=== PATIENT | female | born 1960 | race Caucasian/White ===

== ENCOUNTER → 2021-04-12 14:23 | Outpatient (BNVA) | payer MEDICARE, MEDICAID, SELFPAY | PROVIDERS: Family Provider Nurse Practitioner Family; PCP Nurse Practitioner Family; Referring Provider Nurse Practitioner Family; Visit Provider Nurse Practitioner | DX: G62.9 Polyneuropathy, unspecified (principal); I69.354 Hemiplegia and hemiparesis following cerebral infarction affecting left non-dominant side; Z87.891 Personal history of nicotine dependence | CPT/HCPCS: 82607; 82746; 83921; 84260; 84443; 85651; 86038; 86140; 86431; 99204 ==

== ENCOUNTER 2021-04-12 15:34 | Outpatient (CLI) | payer MEDICARE, MEDICAID, SELFPAY ==
[2021-04-12 16:48] LABS: Erythrocyte Sedimentation Rate 30 mm/hr (0-15)
[2021-04-12 16:53] LABS: C Reactive Protein 10.8 mg/L (0.0-4.9); Thyroid Stimulating Hormone 0.76 uIU/mL (0.27-4.20); Vitamin B12 403 pg/mL (232-1245)
[2021-04-12 17:22] LABS: Folate Level > 20.0 ng/mL (4.8-37.3)
[2021-04-13 16:22] LABS: Anti-Nuclear Antibody Screen NEGATIVE (NEGATIVE)
[2021-04-16 14:55] LABS: Methylmalonic Acid 131 nmol/L (87-318)
== END 2021-04-12 15:35 | disposition home or self-care (01) ==
LOC: LAB 15:39
PROVIDERS: PCP Nurse Practitioner Family; Visit Provider Nurse Practitioner
DX: G62.9 Polyneuropathy, unspecified (principal)
CPT/HCPCS: 82607; 82746; 83921; 84260; 84443; 85651; 86038; 86140; 86431

== ENCOUNTER → 2021-06-03 08:39 | Outpatient (BNVA) | payer MEDICARE, MEDICAID, SELFPAY | PROVIDERS: PCP Nurse Practitioner Family; Referring Provider Nurse Practitioner; Visit Provider Specialist | DX: G62.89 Other specified polyneuropathies (principal); Z87.891 Personal history of nicotine dependence | CPT/HCPCS: 95885; 95886; 95909; G0463 ==

== ENCOUNTER → 2021-06-28 12:39 | Outpatient (BNVA) | payer MEDICARE, MEDICAID, SELFPAY | PROVIDERS: PCP Nurse Practitioner Family; Visit Provider Nurse Practitioner | DX: G62.9 Polyneuropathy, unspecified (principal) | CPT/HCPCS: 99213 ==